=== PATIENT | female | born 1960 | race African-American/Black ===

== ENCOUNTER 2017-09-24 00:32 | Inpatient (IN) | payer MEDICARE, OTHER ==
[~2017-09-24] VITALS: Ht 180.3 cm; Wt 139.8 kg
[2017-09-24] MEDS ORDERED: ONDANSETRON PF 4 MG/2 ML VIAL. ONE (00:49)
[2017-09-24] MEDS ORDERED: ONDANSETRON PF 4 MG/2 ML VIAL. IV ONE (01:00)
--- NOTE | 2017-09-24 01:04 | EKG ---
[address] [address] Test Date: 2017-09-24 Test Time: 00:58:28 Pat Name: JESUS ALBERTO VILLANUEVA Department: Room: Gender: F Metrologist: MATA : 1960 Requested By: SVETLANA PRATT Order Number: [id number] Reading MD: Measurements Intervals Lyons Rate: 80 P: 31 NC: 146 QRS: -16 QRSD: 78 T: 5 QT: 378 QTc: 440 Interpretive Statements SINUS RHYTHM LEFTWARD AXIS CONSIDER LEFT VENTRICULAR HYPERTROPHY QRS(T) CONTOUR ABNORMALITY CONSIDER ANTEROSEPTAL MYOCARDIAL DAMAGE POSSIBLY ABNORMAL ECG RI6.01 Unconfirmed report No previous ECG available for comparison
--- NOTE | 2017-09-24 01:08 | RAD ---
EXAM: CT HEAD WITHOUT CONTRAST. HISTORY: Left-sided weakness. TECHNIQUE: Computed tomography of the head was performed without intravenous contrast. COMPARISON: None. FINDINGS: There is no intracranial hemorrhage. Chaudhry-white differentiation is preserved. The ventricles are normal in size and position. The visualized paranasal sinuses appear clear. The orbits are unremarkable. The temporal bones are unremarkable. The calvarium reveals no suspicious lesions. IMPRESSION: 1. No acute intracranial findings. *One or more of the following individualized dose reduction techniques were utilized for this examination: 1. Automated exposure control. 2. Adjustment of the mA and/or kV according to patient size. 3. Use of iterative reconstruction technique. Electronically signed by: Anastasiia Jones MD (09/24/2017 1:05 AM) [facility]
[2017-09-24 01:22] LABS: ALBUMIN 3.8 g/dL (3.4-5.0); ALBUMIN/GLOBULIN RATIO 0.9 (1.0-1.7); CALCIUM 8.7 mg/dL (8.5-10.1); CREATININE 1.1 mg/dL (0.6-1.0); GFR 62.2; POTASSIUM 3.5 mmol/L (3.5-5.1); TOTAL BILIRUBIN 0.2 mg/dL (0.2-1.0)
[2017-09-24 01:34] LABS: BASO % 0 % (0-3); EOS # 0.1 x10^3/uL (0.0-0.7); EOS % 1 % (0-3); HEMATOCRIT 39.2 % (36.0-47.0); HEMOGLOBIN 13.3 g/dL (12.0-15.5); LYMPH # 5.2 x10^3/uL (1.0-4.8); LYMPH % 45 % (24-48); MEAN CORPUSCULAR HEMOGLOBIN 30 pg (25-35); MEAN CORPUSCULAR HGB CONC 34 g/dL (31-37); MEAN CORPUSCULAR VOLUME 88 fL (79-100); MONO # 0.6 x10^3/uL (0.0-1.1); MONO % 5 % (0-9); NEUT # 5.6 x10^3uL (1.8-7.7); NEUT % 48 % (31-73); PLATELET COUNT 285 x10^3/uL (140-400); RED BLOOD COUNT 4.43 x10^6/uL (3.50-5.40); RED CELL DISTRIBUTION WIDTH 14.3 % (11.5-14.5); WHITE BLOOD COUNT 11.5 x10^3/uL (4.0-11.0)
--- NOTE | 2017-09-24 01:35 | PHYS DOC ---
General Chief Complaint: WEAKNESS/GENERALIZED Stated Complaint: L NUMBNESS Time Seen by MD: 00:33 Source: patient, old records Exam Limitations: no limitations Problems: History of Present Illness Initial Comments Patient is a 56-year-old female with history of rheumatoid arthritis who comes to the emergency department complaining of left leg weakness. Patient states that approximately 30 minutes prior to ED arrival she was laying in bed watching TV when she noticed sudden onset of numbness and tingling at her anterolateral left thigh. She says she felt like her left leg was weak and asked her daughter if lying in a specific position could cause these symptoms. At that point she noticed numbness and tingling at her lips and periorally and became concerned. She felt as if she had left arm numbness and weakness and it was decided that she would come to the emergency department for evaluation. On arrival to the emergency department the patient arrives ambulatory without any altered gait. She is mildly hypertensive and anxious on arrival without any objective lateralizing neuro deficits. She denies headache chest pain or trouble breathing and shortly after arrival complains of nausea which was resolved with Zofran. Patient also relays that she has perceived left leg swelling and tightness for the past few weeks and states that at times she feels as if it gives out on her she has meant to mention that to her doctor at a routine visit. She denies any actual falls. She follows with stamping operator and says that her rheumatoid factor recently increased and her methotrexate dosing was concomitantly increased she takes it weekly on Sundays. NIHSS 0, Swallow normal Timing/Duration: 1/2 hour Severity: mild Modifying Factors: worse with movement Associated Symptoms: malaise, nausea/vomiting, weakness Allergies: Coded Allergies: No Known Drug Allergies (Unverified , 09/24/17) Past Medical History Medical History: other (osteoarthritis, rheumatoid arthritis, GERD, hypertension, diverticulosis, rhabdomyolysis, hospitalized at [facility] May 2017 with GI bleed) Surgical History: other (cyst removal from her back) Social History Smoker: cigarettes Alcohol: occasionally Drugs: none Review of Systems Constitutional: denies chills, denies diaphoresis, denies fever, malaise EENTM: see HPI, denies eye pain, denies blurred vision, denies ear pain, denies nose pain, denies throat pain Respiratory: denies cough, denies shortness of breath, denies wheezing Cardiovascular: denies chest pain, denies palpitations, denies syncope Gastrointestinal: denies abdominal pain, denies diarrhea, nausea, denies vomiting Genitourinary: denies dysuria, denies frequency, denies hematuria Musculoskeletal: see HPI Psychiatric/Neurological: see HPI Hematologic/Lymphatic: denies blood clots, denies easy bleeding, denies easy bruising Physical Exam General Appearance: moderate distress (anxious), obese Eyes: bilateral eye normal inspection, bilateral eye PERRL, bilateral eye EOMI Ear, Nose, Throat: hearing grossly normal, normal ENT inspection (poor dentition no other asymmetry), normal pharynx Neck: non-tender, supple Respiratory: normal breath sounds, no respiratory distress Cardiovascular: normal peripheral pulses, regular rate, rhythm Gastrointestinal: normal bowel sounds, non tender, soft Back: no CVA tenderness, no vertebral tenderness Extremities: normal range of motion, non-tender, no calf tenderness, pelvis stable, other (one plus pitting lower extremity edema bilaterally) Neurologic/Psychiatric: assistant program director II-XII nml as tested, no motor/sensory deficits, alert (anxious), oriented x 3 Skin: normal color, warm/dry Orders, Labs, Meds EKG: Interpreted by me, normal sinus rhythm 80 bpm, leftward axis nonspecific T contour abnormality no ST segment elevation Chest AP: Poor technique due to body habitus, cardiac silhouette does appear to be enlarged no discrete infiltrates or effusions no acute process interpreted by me. PATIENT: JESUS ALBERTO VILLANUEVA ACCOUNT: [id number] : 1960 LOCATION: ER AGE: 56 SEX: F EXAM STATUS: REG ER ORD. PHYSICIAN: SVETLANA PRATT DO REASON: left sided weakness PROCEDURE: CT HEAD WO CONTRAST EXAM: CT HEAD WITHOUT CONTRAST. HISTORY: Left-sided weakness. TECHNIQUE: Computed tomography of the head was performed without intravenous contrast. COMPARISON: None. FINDINGS: There is no intracranial hemorrhage. Chaudhry-white differentiation is preserved. The ventricles are normal in size and position. The visualized paranasal sinuses appear clear. The orbits are unremarkable. The temporal bones are unremarkable. The calvarium reveals no suspicious lesions. IMPRESSION: 1. No acute intracranial findings. *One or more of the following individualized dose reduction techniques were utilized for this examination: 1. Automated exposure control. 2. Adjustment of the mA and/or kV according to patient size. 3. Use of iterative reconstruction technique. Electronically signed by: Anastasiia Jones MD (09/24/2017 1:05 AM) [facility] DICTATED AND SIGNED BY: RANULFO JONES MD DATE: 09/24/17 0103 CC: SAMARIA SUMMERS MD; SVETLANA PRATT DO ~ Pertinent labs: White blood cells 11.5, Creatine kinase 415, C-reactive protein 15, d-dimer 0.81, sedimentation rate 27 The patient displayed no new or progressive symptoms throughout the ED course. Her sensory complaints are consistent with meralgia paresthetica. I discussed findings with the patient and reassured her she is agreeable to observation admission. 0207: I discussed the patient with construction engineer hospitalist Dr. Mittal. After discussion of the patient's history, presentation, ED findings and course he is agreeable to inpatient telemetry admission for further observation and IV hydration as well as ultrasound of the left lower extremity to rule out DVT. Neurology will be consulted to evaluate the patient tomorrow. She is currently requesting something for pain, states she typically takes hydrocodone. Impressions: Perceived left leg weakness Elevated creatine kinase and d-dimer (could be due to RA however will hydrate with rhabdo history and check LE doppler due to current symptoms) History of rheumatoid arthritis History of recent GI bleed Chronic pain Departure Time of Disposition: 02:33 Disposition: 09 ADMITTED INPATIENT Condition: STABLE Additional Instructions: Inpatient telemetry admission Dr Mittal is accepting. SVETLANA PRATT DO Sep 24, 2017 01:35
[2017-09-24 01:40] LABS: BARBITURATES NEG (NEG); BENZODIAZEPINES NEG (NEG); CANNABINOIDS NEG (NEG); COCAINE NEG (NEG); METHADONE NEG (NEG); OPIATES NEG (NEG); PHENCYCLIDINE NEG (NEG)
[2017-09-24 01:43] LABS: BACTERIA,URINE FEW /HPF (0-FEW); BILIRUBIN,URINE NEG (NEG); CLARITY,URINE CLEAR; COLOR,URINE YELLOW; GLUCOSE,URINE NEG (NEG); NITRITE,URINE NEG (NEG); RBC,URINE RARE /HPF (0-2); UROBILINOGEN,URINE 0.2 mg/dL (0.2 mg/dL); WBC,URINE OCC /HPF (0-4)
[2017-09-24 01:44] LABS: AMPHETAMINE/METHAMPHETAMINE NEG (NEG); SQUAMOUS EPITHELIAL CELL,UR MOD /LPF
[2017-09-24 02:01] LABS: SEDIMENTATION RATE 27 (0-25)
[2017-09-24] MEDS ORDERED: IV NORMAL SALINE 1,000ML 1,000 ML IV SCH (02:10)
[2017-09-24] MEDS ORDERED: ACETAMINOPHEN 325 MG TABLET PO PRN (02:15)
[2017-09-24] MEDS ORDERED: ONDANSETRON PF 4 MG/2 ML VIAL. IV PRN (02:15)
[2017-09-24] MEDS ORDERED: METO-239 PO (02:18)
[2017-09-24] MEDS ORDERED: LISI2.5T PO (02:18)
[2017-09-24] MEDS ORDERED: METH2.5T PO (02:18)
[2017-09-24] MEDS ORDERED: FOLI1TAB16 PO (02:20)
[2017-09-24] MEDS ORDERED: RANI15SY PO (02:20)
[2017-09-24] MEDS ORDERED: HYDR-2758 PO (02:20)
[2017-09-24] MEDS: HYDROcodone/APAP 7.5/325MG 1 TAB TABLET PO PRN ×2 (02:40→10:09)
[2017-09-24] MEDS ORDERED: NICOTINE 14MG PATCH. TD PRN (02:45)
[2017-09-24] MEDS ORDERED: NICOTINE 21MG PATCH. TD ONE (02:46)
[2017-09-24 03:00] VITALS: BP 160/104
--- NOTE | 2017-09-24 03:00 | NUR ---
The patient, JESUS ALBERTO VILLANUEVA, 56 y/o, F admitted by YANY GUERRIER MD, was given written information regarding hospital policies, unit procedures and contact persons. Admission assessment and process completed. Pt denies any numbness or tingling at this time. Pt also informs this nurse that she has had these numbness episodes several times prior and that her left leg gives out frequently. She has been discussing this with her Unclaimed Property Officer and primary care provider.
[2017-09-24 05:55] VITALS: BP 160/86
--- NOTE | 2017-09-24 07:08 | RAD ---
Indication: Weakness and chest pressure. Time of exam 0109 hours. No prior studies are available for comparison. The heart is enlarged. Lungs are clear. No infiltrate or failure is detected. No effusion or pneumothorax is seen. Impression: No acute cardiopulmonary process is detected.
[2017-09-24] MEDS ORDERED: tiZANidine 4 MG TABLET. PO PRN (09:45)
[2017-09-24] MEDS ORDERED: traMADol 50 MG TABLET PO PRN (09:45)
[2017-09-24] MEDS ORDERED: FAMOTIDINE 20 MG TABLET PO SCH (10:00)
[2017-09-24] MEDS ORDERED: DICYCLOMINE HCL 10 MG CAPSULE PO SCH (10:00)
[2017-09-24] MEDS ORDERED: METOPROLOL TART IMMED RELEASE 50 MG TABLET PO SCH (10:00)
[2017-09-24] MEDS ORDERED: FOLIC ACID 1 MG TABLET PO SCH (10:00)
[2017-09-24] MEDS ORDERED: PANTOPRAZOLE 40 MG TABLET. PO SCH (10:00)
[2017-09-24 11:12] VITALS: BP 158/98
--- NOTE | 2017-09-24 13:05 | RAD ---
Indication: Lower extremity numbness and elevated d-dimer. Grayscale, color-flow and duplex Doppler evaluation of bilateral lower extremity deep venous systems was performed. FINDINGS: There is no evidence of right or left lower extremity DVT. Both lower extremity deep venous systems showed normal compressibility with normal response to augmentation and Valsalva. No fluid collection or mass is detected. IMPRESSION: No evidence of right or left lower extremity DVT.
[2017-09-24] MEDS ORDERED: HYDROcodone/APAP 5/325MG 1 TAB TABLET PO PRN (15:45)
[2017-09-24] MEDS ORDERED: ATORVASTATIN CALCIUM 20 MG TABLET PO SCH (21:00)
--- NOTE | 2017-09-24 22:55 | CONS ---
DATE OF CONSULTATION: 09/24/2017 REASON FOR CONSULTATION: Rule out TIA versus stroke. HISTORY OF PRESENT ILLNESS: This is a 56-year-old right-handed -[place] female, who was admitted to Emergency Room yesterday after she presented with a sudden onset of numbness and paresthesia primarily to the left thigh started approximately at 9 o'clock p.m. The patient was lying in bed, watching TV when she started having the symptoms. Subsequently, the numbness started spreading down into the lower extremities and up to the upper extremities and around the left lips. She continues to have these symptoms until arrival to Emergency Room when she was found to have moderately elevated blood pressure. The patient also complains of weakness of the left side. She stated her weakness has been progressive in the last 3 weeks and she related that to underlying osteoarthritis and rheumatoid arthritis as well. She also complains of radicular lower back pain. She denies neck pain or recent neck injuries or falls. The patient also complains of intermittent frontal headaches. She denies nausea, vomiting, photophobia, phonophobia, visual disturbances or vertigo, chest pain, shortness of breath or palpitations. PAST MEDICAL HISTORY: Significant for osteoarthritis, rheumatoid arthritis, GERD, hypertension, rhabdomyolysis, diverticulosis. She underwent EGD in 05/2017 because of GI bleed; however. she had red fresh rectal bleeding and that related to hemorrhoids. The EGD was negative for ulcerative ulcer. Hyperlipidemia. PAST SURGICAL HISTORY: Significant for cyst removal from the back. SOCIAL HISTORY: The patient is single. She has grown children. She smokes 6 cigarettes daily. She denies alcohol drinking or illicit drug use. CURRENT MEDICATIONS: Lipitor 20 mg daily, lisinopril 20 mg daily, pantoprazole 40 mg extended release, folic acid 1 mg daily, metoprolol 50 mg twice daily, ranitidine 150 mg daily, Bentyl 10 mg capsule twice daily for abdominal pain, methotrexate 2.5 mg 8 tablets weekly for rheumatoid arthritis, tizanidine 4 mg one tablet q. 8 h. p.r.n. for muscle spasm. ALLERGIES: No known drug allergies. REVIEW OF SYSTEMS: A 10-point review of system was performed and consistent with generalized arthritic pain, generalized weakness, intermittent numbness and paresthesia over the left side and around the left lip. Otherwise, as mentioned above in history of present illness. PHYSICAL EXAMINATION: GENERAL: Obese, -Y[place]i female, not in acute distress. She weighs 308.2 pounds. VITAL SIGNS: Blood pressure 160/86, respiratory rate 13, pulse is 76 and regular, temperature 98.5, oxygen saturation 95% on room air. HEENT: Normocephalic, atraumatic, otherwise, unremarkable. NECK: Supple. Negative for carotid bruit, lymphadenopathy or thyromegaly. LUNGS: Clear to A and P. CARDIOVASCULAR: Regular rate and rhythm, normal S1, S2. There is no S3, S4 or murmur. ABDOMEN: Soft. Bowel sounds positive. EXTREMITIES: Negative for cyanosis, clubbing or pitting edema. Homans' signs is positive on the left side. NEUROLOGICAL: MENTAL STATUS: The patient is alert and oriented x 3. Speech is fluent. There is no language dysfunction. Memory, judgment, and abstract thinking are normal. The patient denies hallucination or delusion. CRANIAL NERVES: Visual busby are full. The pupils are reactive to light and accommodation. The extraocular movements are intact. There is no nystagmus. There is no facial motor or sensory deficit. Hearing is intact bilaterally. The palate is elevated symmetrically. Sternocleidomastoid muscles are powerful bilaterally. The patient shrugs her shoulders symmetrically and protrudes her tongue in the midline without fasciculation or atrophy. MOTOR: No focal muscle bulk was seen. The tone is normal. The strength is 5/5 throughout. SENSORY: Revealed normal pinprick, light touch, vibratory and position senses. Deep tendon reflexes were symmetric and hypoactive with absent Achilles responses. Gait not tested at this time. DIAGNOSTIC DATA: Initial non-enhanced head CT scan revealed no evidence of acute intracranial process. Chest x-ray revealed no evidence of acute cardiopulmonary process. LABORATORY DATA: CBC revealed white blood cells of 11.5 thousand, hemoglobin 13.3, hematocrit 39.2, platelet count 285,000. Chemistry revealed sodium of 139, potassium 3.5, chloride 104, CO2 26, BUN 11, creatinine 1.1, glucose 123. Alkaline phosphatase is elevated at 124 and creatinine kinase is elevated at 415. CRP is high at 15. is slightly elevated at 163. Troponin level less than 0.017. Urinalysis is negative for urinary tract infections and urine drug screen is negative as well. D-dimer is elevated at 0.81. IMPRESSION: 1. Generalized weakness, probably due to underlying advanced rheumatoid arthritis and osteoarthritis. 2. Rhabdomyolysis and dehydration, may contribute to #1. 3. Intermittent numbness and paresthesia of the left side with no focal neurological examination, probably multifactorial due to underlying osteoarthritis, rheumatoid arthritis and anxiety. Cerebral ischemic events probably is remote. 4. Multiple medical problems include gastroesophageal reflux disease, diverticulosis, hypertension, hyperlipidemia, rheumatoid osteoarthritis, anxiety and obesity. RECOMMENDATIONS: 1. Venous Dopplers of the lower extremities. 2. Careful hydrations. 3. Aggressive weight loss. 4. The patient may need a sleep study on an outpatient basis. 5. Continue with current home medications. 6. If the patient has symptoms of TIA, we will obtain carotid Doppler study. M Wing COLON MD DR: STEFAN/rasta JOB#: [id number] / [id number]
--- NOTE | 2017-09-24 23:05 | SSS ---
ADMIT DATE: 09/24/2017 HISTORY OF PRESENT ILLNESS: The patient is a 56-year-old -[place] female patient who came to the Emergency Room complaining of left leg weakness. The patient stated that approximately 30 minutes prior to Emergency Room arrival, she was lying in bed, watching TV when she noticed sudden onset of numbness and tingling at anterolateral left thigh. She states she felt like her left leg was weak and asked her daughter if lying in specific position could cause these symptoms. At that point, she noticed numbness and tingling in her lips and periorally and became concerned. She felt as if she had left arm numbness and weakness and it was decided that she should come to the Emergency Room for further evaluation. On arrival to the Emergency Room, the patient arrived ambulatory without any altered gait. She is mildly hypertensive, anxious on arrival without any objective lateralizing neuro deficits. She at that time denied any headache, chest pain or trouble breathing and she did complain of nausea shortly after she arrived and treated with Zofran. In the Emergency Room, she relayed that she has felt her left leg swelling and tightness for the last few weeks and states that at times she feels as if she gives out on her, but she denied any actual falls. On arrival, her National Institutes of Health Score was 0. She was extensively investigated and has had lab work, which was basically unremarkable and her D-dimer was elevated at 0.87. Therefore, she had had the CT scan of the head, chest x-ray and bilateral lower extremity venous Doppler ultrasound and was admitted for evaluation by the neurologist. PAST MEDICAL HISTORY: Significant for rheumatoid arthritis diagnosed in 2013 as well as hypertension. PAST SURGICAL HISTORY: Significant for cyst removal in her back, Achilles tendon rupture and repair, and right ankle fracture. ALLERGIES: She has no known drug allergies. MEDICATIONS: She is currently on following medications: She is on folic acid 1 mg once a day, hydrocodone/APAP 5/325 mg one tablet every 6 hours, lisinopril 2.5 mg once a day, methotrexate 2.5 mg, she takes 7 tablets once a week, metoprolol succinate 25 mg once a day, ranitidine 15 mg once a day. FAMILY HISTORY: She has 3 sisters, one of them older and has hypertension, 2 younger and 1 brother. SOCIAL HISTORY: Single, never , has a son and 2 daughters. She smokes 6 cigarettes per day, drinks alcohol socially, does not use any drugs. 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 She is currently on disability. PHYSICAL EXAMINATION: GENERAL: On arrival to the Emergency Room, she looked well and was clearly in no apparent respiratory distress, pale, but no jaundice, cyanosis, or thyromegaly. No jugular venous distention. No limb edema. VITAL SIGNS: Her heart rate was 68, blood pressure 158/98, temperature 98.5, respiratory rate was 14 and oxygen saturation was 96% on room air. NEUROLOGIC: Shows that all her cranial nerves are intact. EXTREMITIES: She moves all extremities without difficulty. LABORATORY DATA: Showed that her prothrombin time to be 10.3, INR 1, aPTT 24 and D-dimer was 0.81. Her white cell count was 11,500, hemoglobin 13.3, hematocrit 39.2, MCV 88 and platelet count 285,000 with normal manual differential. Her chemistry showed a serum sodium 139, potassium 3.5, chloride 104, bicarbonate 28, anion gap of 9, BUN 11, creatinine 1.1, estimated GFR was 62 mL per minute. Her glucose was 123. Lactic acid was 1.8, calcium was 8.7. Total bilirubin, AST, ALT, alkaline phosphatase were normal. Her CK was slightly high at 415, total protein was 8, albumin 3.8. Urinalysis showed the urine was yellow, clear, 5.5, specific gravity 1.020. The urine was negative for protein, glucose, ketones, blood, nitrite, bilirubin. There are no RBCs, no WBCs, and a few bacteria. Her urine toxicology screen was negative. Her CT scan of the head showed that there is no intracranial hemorrhage. Chaudhry-white differentiation is preserved. The ventricles are normal in size and position. The visualized paranasal sinuses appear clear. The orbits are unremarkable. The temporal bones are unremarkable. The calvarium reveals no suspicious lesions. Her chest x-ray showed that the heart is enlarged. Lungs are clear. No infiltrate or failure is . No effusion or pneumothorax is seen. ASSESSMENT AND PLAN: Given the tenderness on her left side, she has had venous Doppler ultrasound of her bilateral lower extremities, which showed that there is no evidence of right or left lower extremity DVT, but lower extremity deep venous system showed normal compressibility with normal response to augmentation and Valsalva. No fluid collection or masses detected. She was seen by Dr. Britton who felt that there is no evidence of any neurological deficit that the patient can be discharged safely to follow with her primary care physician and traveling phlebotomist. YANY GUERRIER MD DR: PAVEL/rasta JOB#: [id number] / [id number]
[2017-09-25] MEDS ORDERED: FOLIC ACID 1 MG TABLET PO SCH (09:00)
[2017-09-25] MEDS ORDERED: METOPROLOL SUCC 24HR ER 25 MG TAB.ER.24H. PO SCH (09:00)
[2017-09-25] MEDS ORDERED: LISINOPRIL 2.5 MG TABLET PO SCH (09:00)
[2017-09-25] MEDS ORDERED: LISINOPRIL 20 MG TABLET PO SCH (10:00)
[2017-10-01] MEDS ORDERED: METHOTREXATE SODIUM 2.5 MG TABLET PO SCH ×2 (09:00)
== END 2017-09-24 16:00 | disposition home or self-care (01) | DRG 546 ==
LOC: ER 00:32 → ICU 02:09
PROVIDERS: ADMIT Internal Medicine; ATTEND Internal Medicine
DX: M06.9 Rheumatoid arthritis, unspecified (principal); M62.82 Rhabdomyolysis; Z68.41 Body mass index [BMI] 40.0-44.9, adult; E66.9 Obesity, unspecified; E78.5 Hyperlipidemia, unspecified; E86.0 Dehydration; F17.210 Nicotine dependence, cigarettes, uncomplicated; F41.9 Anxiety disorder, unspecified; I10 Essential (primary) hypertension; G89.29 Other chronic pain; K21.9 Gastro-esophageal reflux disease without esophagitis; M54.5 Low back pain; K57.90 Diverticulosis of intestine, part unspecified, without perforation or abscess without bleeding; M19.90 Unspecified osteoarthritis, unspecified site; R29.700 NIHSS score 0; Z82.49 Family history of ischemic heart disease and other diseases of the circulatory system; Z87.81 Personal history of (healed) traumatic fracture
CPT/HCPCS: 36415; 70450; 71010; 80053; 80307; 81001; 82550; 83605; 83880; 84484; 85025; 85379; 85610; 85651; 85730; 86140; 87641; 93005; 93970; 96374; J2405; 99285-25; G0479; J7030

== ENCOUNTER → 2020-03-20 | Outpatient (CLI) | payer MEDICARE, OTHER ==
[~2020-03-20] MED LIST: FOLI1TAB16 PO; HYDR-2155 PO; LISI2.5T PO; METH2.5T PO; METO-239 PO; RANI15SY PO
[2020-03-20 16:02] LABS: BASO % 0 % (0-3); EOS # 0.2 x10^3/uL (0.0-0.7); EOS % 3 % (0-3); HEMATOCRIT 41.9 % (36.0-47.0); HEMOGLOBIN 13.7 g/dL (12.0-15.5); LYMPH # 2.7 x10^3/uL (1.0-4.8); LYMPH % 37 % (24-48); MEAN CORPUSCULAR HEMOGLOBIN 30 pg (25-35); MEAN CORPUSCULAR HGB CONC 33 g/dL (31-37); MEAN CORPUSCULAR VOLUME 92 fL (79-100); MONO # 0.4 x10^3/uL (0.0-1.1); MONO % 5 % (0-9); NEUT # 4.1 x10^3uL (1.8-7.7); NEUT % 55 % (31-73); PLATELET COUNT 250 x10^3/uL (140-400); RED BLOOD COUNT 4.55 x10^6/uL (3.50-5.40); RED CELL DISTRIBUTION WIDTH 14.4 % (11.5-14.5); WHITE BLOOD COUNT 7.4 x10^3/uL (4.0-11.0)
[2020-03-20 16:11] LABS: ALBUMIN 3.6 g/dL (3.4-5.0); ALBUMIN/GLOBULIN RATIO 0.9 (1.0-1.7); C REACTIVE PROTEIN 8.5 mg/L (0-3.3); CALCIUM 8.7 mg/dL (8.5-10.1); CREATININE 0.9 mg/dL (0.6-1.0); GFR 77.5; POTASSIUM 3.5 mmol/L (3.5-5.1); TOTAL BILIRUBIN 0.4 mg/dL (0.2-1.0); TOTAL PROTEIN 7.8 g/dL (6.4-8.2)
== END | disposition home or self-care (01) ==
LOC: LAB 14:42
PROVIDERS: ATTEND Internal Medicine Rheumatology
DX: Z79.899 Other long term (current) drug therapy (principal)
CPT/HCPCS: 36415; 80053; 85025; 86140

== ENCOUNTER 2020-06-30 19:13 | Emergency (ER) | payer MEDICARE, OTHER ==
[~2020-06-30] VITALS: Ht 180.3 cm; Wt 140.7 kg
[2020-06-30] MEDS ORDERED: TRAM50TA PO (19:58)
--- NOTE | 2020-06-30 19:58 | PHYS DOC ---
Past History Past Medical History: Arthritis, GERD, Hypertension, UTI, Other Past Surgical History: Other Alcohol Use: Occasionally Drug Use: None General Adult EDM: Chief Complaint: HAND PROBLEM HPI: HPI: Patient is a 59-year-old female with a history of rheumatoid arthritis, presented to ER today for evaluation of pain on her right hand and wrist area that is very typical of her rheumatoid arthritis flareup. Patient is under the care of a handle sewer doctor., patient was seen by her doctor last week. Patient said the muscle relaxer that they put her on is not working. Patient came to ER for pain control. Patient denies any injury, denies any chest pain, denies any abdominal pain, no nausea vomiting, no cough, no fever. Review of Systems: Review of Systems: Constitutional: Denies fever or chills Eyes: Denies change in visual acuity HENT: Denies nasal congestion or sore throat Respiratory: Denies cough or shortness of breath Cardiovascular: Denies chest pain or edema GI: Denies abdominal pain, nausea, vomiting, bloody stools or diarrhea : Denies dysuria Musculoskeletal: Positive for right hand and right wrist pain. Integument: Denies rash Neurologic: Denies headache, focal weakness or sensory changes Endocrine: Denies polyuria or polydipsia Lymphatic: Denies swollen glands Psychiatric: Denies depression or anxiety Heart Score: Risk Factors: Risk Factors: DM, Current or recent (<one month) smoker, HTN, HLP, family history of CAD, obesity. Risk Scores: Score 0 - 3: 2.5% MACE over next 6 weeks - Discharge Home Score 4 - 6: 20.3% MACE over next 6 weeks - Admit for Clinical Observation Score 7 - 10: 72.7% MACE over next 6 weeks - Early Invasive Strategies Allergies: Allergies: Allergies Coded Allergies Type Severity Reaction Last Updated Verified No Known Drug Allergies 09/24/17 No Physical Exam: PE: Constitutional: Well developed, well nourished, no acute distress, non-toxic appearance. [] HENT: Normocephalic, atraumatic, bilateral external ears normal, oropharynx moist, no oral exudates, nose normal. [] Eyes: PERRLA, EOMI, conjunctiva normal, no discharge. [] Neck: Normal range of motion, no tenderness, supple, no stridor. [] Cardiovascular:Heart rate regular rhythm, no murmur [] Lungs & Thorax: Bilateral breath sounds clear to auscultation [] Abdomen: Bowel sounds normal, soft, no tenderness, no masses, no pulsatile masses. [] Skin: Warm, dry, no erythema, no rash. [] Back: No tenderness, no CVA tenderness. [] Extremities: Right hand, right wrist, right fingers all swollen mildly, tender to touch, no erythema. Neurologic: Alert and oriented X 3, normal motor function, normal sensory function, no focal deficits noted. [] Psychologic: Affect normal, judgement normal, mood normal. [] EKG: EKG: [] Radiology/Procedures: Radiology/Procedures: [] Course & Med Decision Making: Course & Med Decision Making Pertinent Labs and Imaging studies reviewed. (See chart for details) Patient is a 59-year-old female with rheumatoid arthritis flare, presented with pain. Patient was given tramadol prescription, she will need to follow-up with her rheumatology doctor this week. Dragon Disclaimer: Dragon Disclaimer: This electronic medical record was generated, in whole or in part, using a voice recognition dictation system. Departure Departure: Impression: Primary Impression: Rheumatoid arthritis Disposition: HOME/RESIDENCE PRIOR TO ADM Condition: STABLE Referrals: SAMARIA SUMMERS MD (PCP) please follow up with your handle sewer next week Patient Instructions: Rheumatoid Arthritis Additional Instructions: Thank you for visiting our Emergency Department. We appreciate you trusting us with your care. If any additional problems come up don't hesitate to return to visit us. Please follow up with your primary care provider so they can plan additional care if needed and know about the problem that you had. If symptoms worsen come back to the Emergency Department. Any concerning symptoms that start such as chest pain, shortness of air, weakness or numbness on one side of the body, running high fevers or any other concerning symptoms return to the ER. Scripts Tramadol Hcl (TRAMADOL HCL) 50 Mg Tablet 50 MG PO PRN Q6HRS PRN for PAIN, #20 TAB Prov: YONNY PATEL DO 06/30/20 Justification of Admission: Justification of Admission: Justification of Admission Dx: N/A YONNY PATEL DO Jun 30, 2020 19:58
[2020-06-30] MEDS ORDERED: CYCLOBENZAPRINE 10 MG TABLET. PO ONE (20:15)
[2020-06-30 20:21] VITALS: BP 143/68
== END 2020-06-30 20:18 | disposition home or self-care (01) ==
LOC: ER 19:13
DX: M06.9 Rheumatoid arthritis, unspecified (principal); K21.9 Gastro-esophageal reflux disease without esophagitis; I10 Essential (primary) hypertension; Z87.440 Personal history of urinary (tract) infections
CPT/HCPCS: 99283; 99284

== ENCOUNTER 2020-11-12 23:05 | Emergency (ER) | payer MEDICARE, OTHER ==
[~2020-11-12] VITALS: Ht 180.3 cm; Wt 140.7 kg
[~2020-11-12 23:05] MED LIST changes: +TRAM50TA PO
--- NOTE | 2020-11-12 23:14 | PHYS DOC ---
Past History Past Medical History: Arthritis, GERD, Hypertension, UTI, Other Past Surgical History: Other Alcohol Use: Occasionally Drug Use: None General Adult HPI: HPI: ". I was just at [place].. they worked me up for cardiac.. and my abdomen pain yesterday.. I better now .. but I still feel funny in chest.. I think I got the flu or COVID.. just feel bad.. all over.. like the flu..." Patient is a 60 year old female who presents with above hx and complaints nausea, vomiting, malaise, arthralgia, myalgia with some episodes of diarrhea. Patient did get flu vaccination season. No recent travel. No ill contacts. Normally follows with . No specific history of Covid exposures. Patient does have a long history of rheumatoid arthritis., Asthma, chronic pain, GERD, hypertension, UTIs, asthma and morbid obesity. Has past history o of Achilles tendon rupture and repair. Patient does continue to smoke tobacco. Review of Systems: Review of Systems: Constitutional: Denies fever or chills Eyes: Denies change in visual acuity HENT: Denies nasal congestion or sore throat Respiratory: Complaints of cough Cardiovascular: Denies chest pain or edema GI: Denies abdominal pain, nausea, vomiting, bloody stools. History of diarrhea : Denies dysuria Musculoskeletal: Complaints myalgia and arthralgia Integument: Denies rash Neurologic: Denies headache, focal weakness or sensory changes Endocrine: Denies polyuria or polydipsia Lymphatic: Denies swollen glands Psychiatric: Denies depression or anxiety. Complains of malaise Family History: Family History: Noncontributory to presentation Current Medications: Current Meds: See nursing for home meds Allergies: Allergies: Allergies Coded Allergies Type Severity Reaction Last Updated Verified No Known Drug Allergies 09/24/17 No Physical Exam: PE: Constitutional: no acute distress, non-toxic appearance. [] HENT: Normocephalic, atraumatic, bilateral external ears normal, oropharynx moist, no oral exudates, nose normal. [] Eyes: PERRLA, EOMI, conjunctiva normal, no discharge. [] Neck: Normal range of motion, no tenderness, supple, no stridor. [] Cardiovascular:Heart rate regular rhythm, no murmur [] Lungs & Thorax: Bilateral breath sounds equal apex with scattered wheezes on auscultation [] Abdomen: Bowel sounds hyperactive, soft, no tenderness, no masses, no pulsatile masses. Obese. Skin: Warm, dry, no erythema, no rash. [] Back: No tenderness, no CVA tenderness. [] Extremities: No tenderness, no cyanosis, no clubbing, ROM intact, no edema. [] No cording appreciated Neurologic: Alert and oriented X 3, normal motor function, normal sensory function, no focal deficits noted. [] Psychologic: Affect anxious, judgement normal, mood normal. [] EKG: EKG: [] Radiology/Procedures: Radiology/Procedures: [][place] [id number] IMAGING REPORT Signed PATIENT: JESUS ALBERTO VILLANUEVA TACCOUNT: [id number] : 1960 LOCATION: ER AGE: 60 SEX: F EXAM STATUS: REG ER ORD. PHYSICIAN: DENILSON PERALTA MD REASON: Dyspnea PROCEDURE: CHEST PA & LATERAL Chest radiograph 11/12/2020 11:52 PM INDICATION: Dyspnea COMPARISON: 09/24/2017 TECHNIQUE: Frontal and lateral views of the chest are provided. FINDINGS: The cardiomediastinal silhouette is within normal limits. There are no pleural effusions. There is no pulmonary vascular congestion. There is no pneumothorax. The lungs are clear. No significant osseous abnormality is identified. IMPRESSION: No acute cardiopulmonary process. Electronically signed by: Isabella Ramirez MD (11/13/2020 12:25 AM) [facility] DICTATED AND SIGNED BY: ISABELLA RAMIREZ MD DATE: 11/13/20 0025 CC: DENILSON PERALTA MD; SAMARIA SUMMERS MD ~MTH0 0 Heart Score: Risk Factors: Risk Factors: DM, Current or recent (<one month) smoker, HTN, HLP, family history of CAD, obesity. Risk Scores: Score 0 - 3: 2.5% MACE over next 6 weeks - Discharge Home Score 4 - 6: 20.3% MACE over next 6 weeks - Admit for Clinical Observation Score 7 - 10: 72.7% MACE over next 6 weeks - Early Invasive Strategies Course & Med Decision Making: Course & Med Decision Making Pertinent Labs and Imaging studies reviewed. (See chart for details) Review ED work at [facility]- yesterday. Patient recommended to take her hypertensive meds as directed. Patient declined treatment of her hypertension here in the emergency department. Patient follow-up Covid results. Patient take Tylenol and ibuprofen as needed for discomfort. Use as meds as previous directed. Follow-up primary care. Pt. did agree to clonidine patch at time of discharge.. Declined clonidine tablet. Pt. encouraged to self isolate until results of Covid test done. En courage patient stop smoking. Return if any concerns. Must wear a mask covering nose and mouth anytime she is outside of her home. Impression:. 1. Viral Syndrome 2., Tolerated hypertension 3. Tobacco abuse 4. History of asthma [] Dragon Disclaimer: Dragon Disclaimer: This electronic medical record was generated, in whole or in part, using a voice recognition dictation system. Departure Departure: Referrals: SAMARIA SUMMERS MD (PCP) Dragon Disclaimer This chart was dictated in whole or in part using Voice Recognition software in a busy, high-work load, and often noisy Emergency Department environment. It may contain unintended and wholly unrecognized errors or omissions. Dragon Disclaimer This chart was dictated in whole or in part using Voice Recognition software in a busy, high-work load, and often noisy Emergency Department environment. It may contain unintended and wholly unrecognized errors or omissions. DENILSON PERALTA MD Nov 12, 2020 23:14
[2020-11-13] MEDS ORDERED: cloNIDine TTS-2 1 PATCH PATCH TD ONE
[2020-11-13] MEDS ORDERED: cloNIDine HCL 0.1 MG TABLET PO ONE
--- NOTE | 2020-11-13 00:28 | RAD ---
Chest radiograph 11/12/2020 11:52 PM INDICATION: Dyspnea COMPARISON: 09/24/2017 TECHNIQUE: Frontal and lateral views of the chest are provided. FINDINGS: The cardiomediastinal silhouette is within normal limits. There are no pleural effusions. There is no pulmonary vascular congestion. There is no pneumothorax. The lungs are clear. No significant osseous abnormality is identified. IMPRESSION: No acute cardiopulmonary process. Electronically signed by: Alicia Parker MD (11/13/2020 12:25 AM) [facility]
[2020-11-13 01:25] LABS: INFLUENZA A PATIENT NEGATIVE (NEGATIVE); INFLUENZA B PATIENT NEGATIVE (NEGATIVE)
[2020-11-13 01:34] VITALS: BP 166/120
== END 2020-11-13 02:10 | disposition home or self-care (01) ==
LOC: ER 23:05
DX: B34.9 Viral infection, unspecified (principal); I10 Essential (primary) hypertension; K21.9 Gastro-esophageal reflux disease without esophagitis; M06.9 Rheumatoid arthritis, unspecified; J45.909 Unspecified asthma, uncomplicated; G89.29 Other chronic pain; E66.01 Morbid (severe) obesity due to excess calories; Z87.440 Personal history of urinary (tract) infections; Z20.822 Contact with and (suspected) exposure to COVID-19; Z68.41 Body mass index [BMI] 40.0-44.9, adult
CPT/HCPCS: 71046; 87070; 87804; 87880; 99285; C9803; U0003

== ENCOUNTER 2021-01-26 05:24 | Emergency (ER) | payer MEDICARE, OTHER ==
[~2021-01-26] VITALS: Ht 180.3 cm; Wt 140.7 kg
--- NOTE | 2021-01-26 05:49 | PHYS DOC ---
Past History Past Medical History: Arthritis, GERD, Hypertension, UTI, Other Additional Past Medical Histor: rheumatoid arthritis (DENISE MOLINA MD) Past Surgical History: Cholecystectomy, Other (DENISE MOLINA MD) Alcohol Use: Occasionally Drug Use: None (DENISE MOLINA MD) Adult General Chief Complaint Chief Complaint: CHEST PAIN HPI HPI Patient is a 60-year-old female with a past medical history of RI on aspirin and clopidogrel, rheumatoid arthritis, hypertension and GERD who presents to the emergency department with a chief complaint of chest pain. Stated started about an hour ago while she was getting dinner ready for tonight. States it is in her upper left chest with some radiation to the left shoulder. States she did get her Covid shot recently on that arm. States that the pain was 5 out of 10, sharp in nature. Denies any recent travel, traumas, illnesses, fevers, diaphoresis, known ill contacts, shortness of breath, abdominal pain, nausea, vomiting, dysuria, hematuria or blood in the stool. States she has been other bernabe doing well and taking all her medications as prescribed. (DENISE MOLINA MD) Review of Systems Review of Systems Review of systems otherwise unremarkable except noted in HPI (DENISE MOLINA MD) Allergies Allergies Allergies Coded Allergies Type Severity Reaction Last Updated Verified No Known Drug Allergies 09/24/17 No (DENISE MOLINA MD) Physical Exam Physical Exam Constitutional: Well developed, well nourished, no acute distress, non-toxic appearance. [] HENT: Normocephalic, atraumatic, Eyes: conjunctiva normal, no discharge. [] Neck: Normal range of motion, no tenderness, supple, no stridor. [] Cardiovascular:Heart rate regular rhythm, no murmur [] Lungs & Thorax: Bilateral breath sounds clear to auscultation [] Abdomen: soft, no tenderness, no masses, no pulsatile masses. [] Skin: Warm, dry, no erythema, no rash. [] Back: no CVA tenderness. [] Extremities: No tenderness, ROM intact, no edema. [] Neurologic: Alert and oriented X 3, no focal deficits noted. [] Psychologic: Affect normal, judgement normal, mood normal. [] (DENISE MOLINA MD) Current Patient Data Vital Signs Vital Signs Date Time Temp Pulse Resp B/P (MAP) Pulse Ox O2 Delivery O2 Flow Rate FiO2 4/25/21 05:33 98.2 75 18 146/94 (111) 99 Room Air (DENISE MOLINA MD) EKG EKG [] (DENISE MOLINA MD) Radiology/Procedures Radiology/Procedures [] (DENISE MOLINA MD) Heart Score C/O Chest Pain: Yes HEART Score for Chest Pain: HEART Score for Chest Pain Response (Comments) Value History Slighlty/Non-Suspicious 0 ECG Normal 0 Age >45 - < 65 1 Risk Factors 1 or 2 Risk Factors 1 Total 2 Risk Factors: Risk Factors: DM, Current or recent (<one month) smoker, HTN, HLP, family history of CAD, obesity. Risk Scores: Risk Factors: DM, Current or recent (<one month) smoker, HTN, HLP, family history of CAD, obesity. (DENISE MOLINA MD) Course & Med Decision Making Course & Med Decision Making Patient is a 60-year-old female who presents with a chief complaint of chest pain Vital signs not concerning. Physical exam noted above. EKG noted above with no STEMI. Chest x-ray not concerning. Patient given 324 of aspirin. Chest x-ray and labs pending. Patient handed off to day team. [] (DENISE MOLINA MD) Course & Med Decision Making Assumed care of patient at check out from Dr. Molina. At check out, lab work and delta troponin were pending and patient is stable. At this time, lab work and does troponin are normal. Patient would like to go home. Pain is atypical for cardiac chest pain. She has been having this pain intermittently since she got her vaccine and they are mostly in her left arm. I have discussed with the patient signs and symptoms that would require her to return to the emergency room. 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 Patient's test results and vitals while in the ED were fully reviewed and discussed with the patient. Patient is stable and at this time does not need admission to the hospital. We have discussed strict return precautions and the importance of following up with their Primary Care Physician. Patient stated understanding and was given an opportunity to ask any questions. Patient is in agreement with plan. (ERICKA YEAGER MD) Dragon Disclaimer Dragon Disclaimer This electronic medical record was generated, in whole or in part, using a voice recognition dictation system. (DENISE MOLINA MD) Departure Departure: Impression: Primary Impression: Chest pain Disposition: 01 HOME / SELF CARE / HOMELESS Condition: STABLE Referrals: SAMARIA SUMMERS MD (PCP) Patient Instructions: Chest Pain (Nonspecific) DENISE MOLINA MD Jan 26, 2021 05:49 ERICKA YEAGER MD Jan 26, 2021 07:41
[2021-01-26 05:56] LABS: BASO % 1 % (0-3); EOS # 0.1 x10^3/uL (0.0-0.7); EOS % 2 % (0-3); HEMATOCRIT 41.3 % (36.0-47.0); HEMOGLOBIN 13.3 g/dL (12.0-15.5); LYMPH # 2.9 x10^3/uL (1.0-4.8); LYMPH % 34 % (24-48); MEAN CORPUSCULAR HEMOGLOBIN 30 pg (25-35); MEAN CORPUSCULAR HGB CONC 32 g/dL (31-37); MEAN CORPUSCULAR VOLUME 92 fL (79-100); MONO # 0.5 x10^3/uL (0.0-1.1); MONO % 6 % (0-9); NEUT # 4.8 x10^3uL (1.8-7.7); NEUT % 57 % (31-73); PLATELET COUNT 235 x10^3/uL (140-400); RED BLOOD COUNT 4.47 x10^6/uL (3.50-5.40); RED CELL DISTRIBUTION WIDTH 13.6 % (11.5-14.5); WHITE BLOOD COUNT 8.4 x10^3/uL (4.0-11.0)
--- NOTE | 2021-01-26 06:03 | RAD ---
Single view chest dated 01/26/2021 comparison made to 11/13/2020. Clinical Indication: Chest pain. Findings: Single upright portable exam of the chest was performed. Heart size and mediastinal contours are with in normal limits given technique. The lungs are clear without evidence of focal consolidation. Vascul ar interstitium is within normal limits. Impression:: No acute radiographic abnormality. Electronically signed by: Cuong Cardenas MD (01/26/2021 6:01 AM) MARIELLE
[2021-01-26 06:04] LABS: CALCIUM 8.9 mg/dL (8.5-10.1); CREATININE 1.1 mg/dL (0.6-1.0); GFR 61.3; POTASSIUM 3.3 mmol/L (3.5-5.1)
[2021-01-26 06:10] LABS: ALBUMIN 3.7 g/dL (3.4-5.0); ALBUMIN/GLOBULIN RATIO 0.9 (1.0-1.7); MAGNESIUM 2.2 mg/dL (1.8-2.4); TOTAL BILIRUBIN 0.3 mg/dL (0.2-1.0)
[2021-01-26] MEDS ORDERED: POTASSIUM CHLORIDE 20 MEQ TABLET.ER. PO ONE (07:15)
[2021-01-26] MEDS ORDERED: ASPIRIN CHEWABLE 81 MG TABLET. PO ONE (07:15)
[2021-01-26 07:29] VITALS: BP 148/99
--- NOTE | 2021-01-26 12:45 | EKG ---
[address] [address] Test Date: 2021-01-26 Test Time: 05:34:49 Pat Name: JESUS ALBERTO VILLANUEVA Department: Room: Gender: F Media Planner: : 1960 Requested By: DENISE MOLINA Order Number: [id number] Reading MD: Measurements Intervals [place] Rate: 67 P: 32 DC: 150 QRS: -21 QRSD: 82 T: 7 QT: 418 QTc: 445 Interpretive Statements SINUS RHYTHM LEFT ATRIAL ABNORMALITY LEFTWARD AXIS CONSIDER LEFT VENTRICULAR HYPERTROPHY ABNORMAL ECG RI6.02 No previous ECG available for comparison
== END 2021-01-26 07:47 | disposition home or self-care (01) ==
LOC: ER 05:24
DX: R07.89 Other chest pain (principal); K21.9 Gastro-esophageal reflux disease without esophagitis; I10 Essential (primary) hypertension; M06.9 Rheumatoid arthritis, unspecified; I25.2 Old myocardial infarction; Z87.440 Personal history of urinary (tract) infections
CPT/HCPCS: 36415; 71045; 80053; 83735; 84484; 85025; 85379; 93005; 99285